=== PATIENT | female | born 1975 | race Caucasian/White ===

== ENCOUNTER 2020-06-05 13:40 | Emergency (ER) | payer OTHER ==
[~2020-06-05] VITALS: Ht 165.1 cm; Wt 131.5 kg
[2020-06-05] MEDS ORDERED: NORCO 5-325 TA1 EAC2 PO (15:15)
[2020-06-05] MEDS ORDERED: CRUTCHES MISCELL (15:30)
[2020-06-05 15:35] VITALS: BP 142/88
== END 2020-06-05 15:37 | disposition home or self-care (01) ==
LOC: ER 13:40
DX: M25.461 Effusion, right knee (principal); M79.604 Pain in right leg; Z98.890 Other specified postprocedural states; W22.8XXA Striking against or struck by other objects, initial encounter; Y93.I9 Activity, other involving external motion; Y92.488 Other paved roadways as the place of occurrence of the external cause; Y99.8 Other external cause status

== ENCOUNTER 2021-03-26 17:16 | Emergency (ER) | payer OTHER ==
[~2021-03-26] VITALS: Ht 165.1 cm; Wt 136.1 kg
[~2021-03-26 17:16] MED LIST: CRUTCHES MISCELL; NORCO 5-325 TA1 EAC2 PO
[2021-03-26] MEDS ORDERED: PROMETH-CODEIN 65 ML PO ×2 (19:07→19:08)
[2021-03-26] MEDS ORDERED: CEPACOL SORE T1 EAC8 PO ×2 (19:07→19:08)
[2021-03-26 19:15] VITALS: BP 157/108
== END 2021-03-26 19:18 | disposition home or self-care (01) ==
LOC: ER 17:16
DX: J02.9 Acute pharyngitis, unspecified (principal); R05 Cough; I10 Essential (primary) hypertension; Z79.899 Other long term (current) drug therapy; Z20.822 Contact with and (suspected) exposure to COVID-19

== ENCOUNTER 2021-04-23 10:29 | Observation (INO) | payer OTHER ==
[~2021-04-23] VITALS: Ht 165.1 cm; Wt 134.7 kg
--- NOTE | ~2021-04-23 | O ---
[facility] [place] [address] OPERATIVE REPORT Name: BLAS MELGAR Room #: 448-P [facility] M.R.#: [id number] Admission: 04/23/21 Attend Phys: Juarez Dewey MD Discharge: Date of : 77 Report #: [id number] THIS REPORT FOR: cc: FAM - No family physician/PCP FAM - No family physician/PCP Juarez Dewey MD ~ DOC #: [id number] cc: MD Juarez Garcia MD DATE OF SERVICE: 04/23/2021 PREOPERATIVE DIAGNOSES: 1. Thyroid mass. 2. Chronic globus. 3. 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 4. Morbid obesity. POSTOPERATIVE DIAGNOSES: 1. Thyroid mass. 2. Chronic globus. 3. 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 4. Morbid obesity. OPERATIONS PERFORMED: 1. Total thyroidectomy. 2. Nerve integrity monitoring x2 hours. PROCEDURE: Total thyroidectomy and nerve integrity monitoring. INDICATIONS: The patient is a 45-year-old female presenting on referral from Dr. Herrera for chronic sore throat, chronic globus sensation and a lump in the throat sensation. She was found to have reflux, but also a mass in her thyroid measuring 5.4 x 3.4 x 4.2 cm. This was in the mid left lobe extending into the isthmus and was pressing on the trachea. The patient was symptomatic with compressive symptoms, some hoarseness and fullness in her neck. Ultrasound confirmed. Fine-needle aspiration was done, which appeared benign. 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 I received the Hurthle cell findings yesterday. These were benign, but because of the size of this mass and because of the symptomatic nature, recommendations were made for thyroidectomy. SURGEON: Juarez Dewey MD ANESTHESIA: General endotracheal with a nerve integrity monitoring endotracheal tube. [facility] [address] [place] [address] OPERATIVE REPORT Name: BLAS MELGAR Room #: 448-P [facility].#: [id number] Admission: 04/23/21 Attend Phys: Juarez Dewey MD Discharge: Date of : 77 Report #: [id number] DESCRIPTION OF PROCEDURE: The patient was brought to the operating room and placed supine on the operating table. After adequate general anesthesia was achieved via endotracheal intubation with a Medtronic nerve integrity monitoring endotracheal tube. The neck was extended and the planned incision marked out in a relaxed skin tension line above the manubrium and injected with 1% Xylocaine with 1:100,000 epinephrine. As a separate part of the procedure, the Medtronic nerve integrity monitor was applied to the electrodes from the endotracheal tube, separate ground electrodes were placed in the soft tissue overlying the sternum contralateral shoulder. Electrode resistance and impedance was measured and found to be acceptable. Threshold and stimulus intensity parameters were set and the patient was monitored for the entirety of the case of approximately two hours in order to locate and protect the recurrent laryngeal nerve. The patient's significant adipose was then taped inferiorly to allow access to the neck. She was prepped and draped sterilely. Both the procedure began with an incision through skin and subcutaneous tissue and platysma. Subplatysmal flaps were elevated superiorly and inferiorly. Dissection was made down to the strap muscles. This was a very deep dissection due to significant subcutaneous tissue, making this dissection that much more difficult. The strap muscles were then identified, divided vertically in the midline and retracted laterally. Beginning on the patient's left side, this mass was very prominent forcing the trachea to the right and stretching the strap muscles. The strap muscles were dissected then allowing access to the thyroid gland. Beginning inferiorly, the inferior vessels were sequentially identified, clamped between ligature clips and divided. Superior vessels were then dissected individually, clamped and then ligated with clips and divided. The isthmus was then divided to the right of midline, allowing me to mobilize this mass up and onto the trachea. Dissection then began in the tracheoesophageal groove. The recurrent laryngeal nerve was identified in its usual anatomic position and tracked superiorly to the cricothyroid joint, keeping the nerve under direct vision. Chand's ligament was taken down sharply. The superior parathyroid and inferior parathyroid were both grouped together attached to the thyroid gland at the cricothyroid joint. These were dissected on the blood supply and preserved. This flow was delivered off the field as specimen to in formalin. As fine-needle aspiration and formal testing was already done, frozen section was not done. Attention was then turned to the contralateral right lobe. Dissection began superiorly. The superior vessels were sequentially identified, clamped and then divided. The middle thyroid vein was taken down between ligature clips and divided and the inferior vessels were sequentially identified, clamped, ligature clips and divided. Dissection at this gland was rolled up onto the trachea. Dissection in the tracheoesophageal groove revealed the recurrent nerve in its usual anatomic position. This was tracked superiorly to the cricothyroid joint. [facility] [address] [place] [address] OPERATIVE REPORT Name: BLAS MELGAR Room #: 448-P [facility]#: [id number] Admission: 04/23/21 Attend Phys: Juarez Dewey MD Discharge: Date of : 77 Report #: [id number] Chand's ligament was taken down sharply. Again on this side, the superior parathyroid was found attached to the gland. This was dissected free and it was blind and preserved. Inferior parathyroid was running with the inferior thyroid artery, also dissected on its blood supply and preserved. Chand's ligament was taken down sharply. This lobe was taken off the field in formalin. Hemostasis was then assured with bipolar cautery and clip ligature. Powdered Jean Pierre was placed opposite each cricothyroid joint. Strap muscles were then closed vertically in the midline with interrupted 3-0 Vicryl. A 10-Belarusian Leon drain was placed through a separate stab incision curled into the wound, connected to bulb suction. It was sutured in place with 2-0 silk. Subcutaneous tissues were then closed with interrupted 3-0 Vicryl and then 4-0 Vicryl was used to close platysma with deep dermal sutures. A 5-0 running subcuticular Prolene was made on skin. Mastisol and Steri-Strips were applied followed by an Op-Site. The patient was then returned to anesthesia, awakened without difficulty, returned to recovery in good condition. Sponge and needle counts were correct. There were no complications. Blood loss was about 30 mL. She will be watched overnight for monitoring of calcium presuming she does well, discharged to home. PLAN: To follow up with me in one week. Written and verbal discharge instructions and emergency precautions have been given to her family. DISCHARGE MEDICATIONS: Include cephalexin 500 mg q.i.d. for 10 days, hydrocodone/acetaminophen 7.5/325 one to two q.4-6 hours p.r.n., ondansetron 4 mg ODT tablet 1 p.o. q.4-6 hours p.r.n., Synthroid 150 mcg 1 p.o. every day and Tums 2 tablets t.i.d. She is instructed on light activity a soft diet and water precautions. These dissection was made significantly more difficult due to the patient's obesity, resulting in a longer OR time in addition to more difficulty with isolating vital structures. MD ADRY Fay/AMRIK By: [id number] [id number] Juarez Dewey MD /nt
[~2021-04-23 10:29] MED LIST changes: +CEPACOL SORE T1 EAC8 PO; +PROMETH-CODEIN 65 ML PO
[2021-04-23 11:43] VITALS: BP 138/91
[2021-04-23 17:11] LABS: ALBUMIN 3.2 g/dL (3.4-5.0); MAGNESIUM 1.9 mg/dL (1.8-2.4)
[2021-04-23 20:32] VITALS: BP 114/61
--- NOTE | 2021-04-24 02:32 | NUR ---
ASESSMENT COMPLETED. PT IS ALERT AND ORIENTED. GETS UP TO THE BATHROOM WITH SBA. VOIDING OKAY. AFEBRILE. PT GIVEN MORPHINE X 1 AT THE START OF SHIFT FOR BREAK THROUGH PAIN, THEREFATER PT GIVEN NORCO, PAIN SEEMS TO BE IN CONTROL. JOHANN IN PLACE. CONTINUES ON IV FLUIDS. C/O NUMBNESS TO R HAND- NOT WORSE OR SPREADING.CONTINUES ON SERIAL CALCIUM CHECKS, LAST OF 8.6 AT AROUND 0100. CALCIUM SUPPLEMENATON ALSO GIVEN, PT SWALLOWS WITH NO DIFFICULTIES, HOB ELEVATED, MANTAINED ON 02/2L/NC FOR POST OP COMFORT. NO FURTHER CONCERNS AT THIS TIME.
[2021-04-24 04:53] VITALS: BP 145/88
[2021-04-24 07:55] VITALS: BP 126/80
[2021-04-24 11:15] VITALS: BP 126/80
--- NOTE | 2021-04-24 11:18 | NUR ---
CALLED DR. WELLER ABOUT PT D/C PENDING. HE IS OKAY WITH PT DISCHARGING. GAVE TELEPHONE ORDERS FOR PT D/C. HE ALSO GAVE ORDERS FOR PT TO KEEP JOHANN DRAIN AND HAVE HER COME TO HIS OFFICE OUTPT TOMORROW TO HAVE THEM TAKEN OUT.
--- NOTE | 2021-04-24 11:49 | NUR ---
CM REVIEWED CHART AND SPOKE WITH BEDSIDE RN. PT HAS ORDERS TO D/C HOME TODAY. PT WILL FOLLOW UP WITH PHYSICIAN AND HAVE DRAIN REMOVED. PT HAS NO NEEDS FROM . CASE CLOSED.
--- NOTE | 2021-04-24 12:05 | NUR ---
NEW MED INFO AD DISCHARGE INSTRUTION GIVEN TO PT. PT AWARE ABOUT CALLING DR. MEDINA OFFICE TOMORROW TO TAKE OUT JOHANN DRAIN. PT EDUCATED ON NEW MED INSTRUCTION AND SIDE EFFECTS. IV TAKEN OUT. DENIES ANY OTHER NEEDS AT THE MOMENT. WAITNG ON PT RIDE
--- NOTE | 2021-04-24 13:09 | NUR ---
pt taken down via wheeelchair
== END 2021-04-24 13:06 | disposition home or self-care (01) ==
LOC: OR 10:29 → TBA 10:50 → OR 11:33 → 4S 17:09 → OR 17:10 → 4S 17:10
PROVIDERS: ADMIT Otolaryngology Plastic Surgery within the Head & Neck; ATTEND Otolaryngology Plastic Surgery within the Head & Neck
DX: E07.9 Disorder of thyroid, unspecified (principal); F45.8 Other somatoform disorders; D44.0 Neoplasm of uncertain behavior of thyroid gland; E66.01 Morbid (severe) obesity due to excess calories; Z68.42 Body mass index [BMI] 45.0-49.9, adult; J02.9 Acute pharyngitis, unspecified; R03.0 Elevated blood-pressure reading, without diagnosis of hypertension; Z79.899 Other long term (current) drug therapy
CPT/HCPCS: 10102; 50010; 50101; 50386; 50417; 52190; 52220; 52287; 56524; 56526; 56528; 56760; 57006; 62110; 62900; 70005

== ENCOUNTER 2022-01-11 15:12 | Emergency (ER) | payer OTHER ==
[~2022-01-11] VITALS: Ht 165.1 cm; Wt 136.1 kg
[2022-01-11 15:58] LABS: BASOPHILS 0.8 % (0.0-2.0); EOSINOPHILS 2.4 % (0.0-3.0); HEMATOCRIT 29.8 % (37.0-47.0); HEMOGLOBIN 9.7 gm/dL (12.0-15.0); LYMPHOCYTES 43.1 % (24.0-44.0); MCH 23.8 pg (26.0-34.0); MCHC 32.6 g/dL (28.0-37.0); MCV 72.9 fL (80.0-100.0); MONOCYTES 6.9 % (1.0-8.0); PLATELET COUNT 354 thou/uL (150-400); POLYS 46.8 % (36.0-66.0); RBC 4.08 mil/uL (4.20-5.00); RDW 18.5 % (10.5-14.5); WBC 8.6 thou/uL (4.0-11.0)
[2022-01-11 16:06] LABS: CALCIUM 9.3 mg/dL (8.5-10.1); CREATININE 0.9 mg/dL (0.6-1.0); POTASSIUM 3.4 mmol/L (3.5-5.1)
[2022-01-11 16:12] LABS: ALBUMIN 3.7 g/dL (3.4-5.0); TOTAL BILIRUBIN 0.6 mg/dL (0.2-1.0); TOTAL PROTEIN 8.1 g/dL (6.4-8.2)
[2022-01-11 16:55] LABS: ANISOCYTOSIS 2+
[2022-01-11 16:55] LABS: URINE BILIRUBIN NEGATIVE (Negative); URINE BLOOD 3+ (Negative); URINE CLARITY CLEAR; URINE COLOR YELLOW; URINE GLUCOSE-RANDOM* NEGATIVE (Negative); URINE KETONES NEGATIVE (Negative); URINE LEUKOCYTES-REFLEX NEGATIVE (Negative); URINE NITRITE-REFLEX NEGATIVE (Negative); URINE PROTEIN (DIPSTICK) NEGATIVE (Negative); URINE UROBILINOGEN 0.2 E.U./dl (0.2-1.0)
[2022-01-11 17:11] LABS: BACTERIA-REFLEX 1-9 Few /HPF (None Seen); CASTS None Seen /LPF (None Seen); CRYSTALS None Seen /LPF (None Seen); SQUAMOUS 0-3 Few /LPF (0-3); URINE RBC 1-2 Rare /HPF (NONE SEEN); URINE WBC-REFLEX 6-15 Few /HPF (0-5)
[2022-01-11] MEDS ORDERED: FLEXERIL PO (17:23)
[2022-01-11 17:24] VITALS: BP 152/86
--- NOTE | 2022-01-12 07:40 | EKG ---
[place] [address] [facility] [place] [address] ELECTROCARDIOGRAM REPORT Name: BLAS MELGAR [id number] Admission: 01/11/22 Attend Phys: Discharge: 01/11/22 Date of : 77 Report #: [id number] [facility] ED Test Date: 2022-01-11 Test Time: 15:59:19 Pat Name: BLAS MELGAR Department: Room: Gender: F Court Orderly: [email or web address] [email or web address] : 1975 Requested By: Starr Armstrong Order Number: [id number] MD: Ad Laws Measurements Intervals [place] Rate: 89 P: 33 NC: 153 QRS: 60 QRSD: 95 T: QT: 435 QTc: 530 Interpretive Statements Sinus rhythm Borderline low voltage, extremity leads Prolonged QT interval No previous ECG available for comparison Electronically Signed On 01-12-2022 7:40:44 [employer] by Ad Laws [email or web address] <ELECTRONICALLY SIGNED> By: Ad Laws MD, [facility] 01/12/22 0740 [id number] Ad Laws MD, FACC /EPI
== END 2022-01-11 17:24 | disposition home or self-care (01) ==
LOC: ER 15:12
PROVIDERS: Emergency Medicine; Physician Assistant
DX: E27.8 Other specified disorders of adrenal gland (principal); Z20.822 Contact with and (suspected) exposure to COVID-19; R94.31 Abnormal electrocardiogram [ECG] [EKG]